=== PATIENT | female | born 1950 | race Caucasian/White ===

== ENCOUNTER → 2019-04-09 | Outpatient (CLI) | payer OTHER ==
[~2019-04-09] MED LIST: BENZ100A PO; CEPH500 PO; D3 DOTS2000 UNIT; LUTEIN10 MG; Lysine1000 MG; PRED20 PO; Support-5001 EACH
== END ==
LOC: LAB EV 19:03 → LAB SHORT 19:03
DX: R30.0 Dysuria (principal); R30.9 Painful micturition, unspecified
CPT/HCPCS: 87086

== ENCOUNTER → 2020-10-06 | Outpatient (CLI) | payer OTHER ==
[~2020-10-06] MED LIST changes: +DHEA 10 MG TAB1 EACH PO; +LUTEIN20 MG PO; +MULVITA PO; +PRESERVISION A1 EAC1 PO; +Vitamin B-121000 MCG PO; +Vitamin D2000 UNIT PO; +[UNRECOGNIZED DRUG - OTHER] PO
[2020-10-07 08:29] LABS: Candida species (DNA Probe) Negative (NEGATIVE); G. vaginalis (DNA Probe) Negative (NEGATIVE); T. vaginalis (DNA Probe) Negative (NEGATIVE)
== END | disposition home or self-care (01) ==
LOC: LAB SHORT 10:30
PROVIDERS: Family Medicine
DX: N89.8 Other specified noninflammatory disorders of vagina (principal)
CPT/HCPCS: 87480; 87510; 87660

== ENCOUNTER 2022-12-19 10:14 | Day surgery (SDC) | payer OTHER ==
[~2022-12-19] VITALS: Ht 162.6 cm; Wt 67.6 kg
--- NOTE | 2022-12-19 10:49 | NUR ---
12/19/22 1049 Jocelyn Galeano 1043 TETRACAINE DROP TO THE R EYE, 1044 PLEDGET PLACED IN R EYE
[2022-12-19 11:46] VITALS: BP 118/65
--- NOTE | 2022-12-19 12:09 | NUR ---
12/19/22 1209 Kal Howell IV REMOVED INTACT. SITE WNL.
== END 2022-12-19 12:00 | disposition home or self-care (01) ==
LOC: ORSCSDS 10:14
PROVIDERS: Ophthalmology
PROC: 08DJ3ZZ Extraction of Right Lens, Percutaneous Approach (ICD-10-PCS; principal; 2022-12-19 11:30)
DX: H25.11 Age-related nuclear cataract, right eye (principal); N18.9 Chronic kidney disease, unspecified
CPT/HCPCS: J2250; J3010; J3301; J7040; V2632

== ENCOUNTER 2022-12-26 07:17 | Day surgery (SDC) | payer OTHER ==
[~2022-12-26] VITALS: Ht 162.6 cm; Wt 66.9 kg
--- NOTE | 2022-12-26 07:36 | NUR ---
12/26/22 0736 Jocelyn Galeano TETRACAINE TO THE L EYE AT 0732, PLEDGET PLACED AT 0735
[2022-12-26 08:47] VITALS: BP 117/65
== END 2022-12-26 08:58 | disposition home or self-care (01) ==
LOC: ORSCSDS 07:17
PROVIDERS: Ophthalmology
PROC: 08RK3JZ Replacement of Left Lens with Synthetic Substitute, Percutaneous Approach (ICD-10-PCS; principal; 2022-12-26 08:30)
DX: H25.12 Age-related nuclear cataract, left eye (principal); Z96.1 Presence of intraocular lens; N18.9 Chronic kidney disease, unspecified; Z79.899 Other long term (current) drug therapy
CPT/HCPCS: J2001; J2250; J3010; J3301; J7040; V2632

== ENCOUNTER → 2023-02-04 | Outpatient (CLI) | payer OTHER ==
[2023-02-04 09:37] LABS: BASOPHILS ABSOLUTE AUTO 0.04 K/mm3 (0.00-0.23); BASOPHILS PERCENT AUTO 1 % (0-2); EOSINOPHILS PERCENT AUTO 3 % (0-6); Hematocrit 38.8 % (33.0-51.0); IMMATURE GRAN ABSOLUTE AUTO 0.01 K/mm3 (0.00-0.10); IMMATURE GRAN PERCENT AUTO 0 % (0-1); LYMPHOCYTES ABSOLUTE AUTO 0.78 K/mm3 (0.84-5.20); LYMPHOCYTES PERCENT AUTO 20 % (21-46); MONOCYTES ABSOLUTE AUTO 0.37 K/mm3 (0.16-1.47); MONOCYTES PERCENT AUTO 10 % (4-13); Mean Corpuscular HGB 31.7 pg (26.0-34.0); Mean Corpuscular HGB Conc 33.5 g/dL (31.5-36.5); Mean Corpuscular Volume 95 fL (80-100); NEUTROPHILS ABSOLUTE AUTO 2.52 K/mm3 (1.96-9.15); NEUTROPHILS PERCENT AUTO 66 % (41-73); Platelet Count 278 K/mm3 (150-400); RDW Coefficient Variation 13.7 % (11.7-14.2); RDW Standard Deviation 47.2 fL (35.1-46.3); White Blood Cell Count 3.82 K/mm3 (4.00-11.30)
[2023-02-04 09:54] LABS: Albumin, Blood 4.1 g/dL (3.4-5.0); Albumin/Globulin Ratio 1.2 (0.8-1.8); Bilirubin, Total 0.4 mg/dL (0.1-1.0); Bun/Creatinine Ratio 16.1 (12.0-20.0); Calcium, Blood 9.6 mg/dL (8.5-10.1); Creatinine, Blood 1.12 mg/dL (0.40-1.00); Globulin, Blood 3.4 g/dL (2.2-4.0); Potassium, Blood 4.4 mmol/L (3.5-5.5); Thyroid Stimulating Hormone 1.341 uIU/mL (0.360-4.800); Total Protein, Blood 7.5 g/dL (6.4-8.2)
== END | disposition home or self-care (01) ==
LOC: LAB 09:30 → LAB SHORT 09:30
PROVIDERS: Physician Assistant
DX: R53.83 Other fatigue (principal)
CPT/HCPCS: 80053; 84443; 85025

== ENCOUNTER → 2024-03-10 | Outpatient (CLI) | payer OTHER ==
[2024-03-10 08:56] LABS: Source, Urine Clean Catch
[2024-03-10 10:55] LABS: Appearance, Urine Clear (Clear); Bilirubin, Urine Neg (Neg); Blood, Urine 1+ (Neg); Color, Urine Yellow (P-Yellow); Glucose Qualitative, Urine Neg (Neg); Ketones, Urine Neg (Neg); Leukocyte Esterase, Urine 3+ (Neg); Nitrite, Urine Neg (Neg); Protein, Urine Neg (Neg); Urobilinogen, Urine NORM (Normal)
[2024-03-10 12:21] LABS: Squamous Epithelial Cells Few /hpf (Few)
[2024-03-10 12:22] LABS: Bacteria Few /hpf; Transitional Epithelial Cells Rare /hpf (0-Rare)
== END | disposition home or self-care (01) ==
LOC: LAB SHORT 08:54 → LAB 08:54 → EDSTATUS 03-09 17:40 → LAB FUT 03-09 17:40
PROVIDERS: Nurse Practitioner Family
DX: N39.0 Urinary tract infection, site not specified (principal); A49.8 Other bacterial infections of unspecified site
CPT/HCPCS: 81001; 87077; 87086; 87186